=== PATIENT | female | born 1950 | race Caucasian/White ===

== ENCOUNTER → 2016-07-16 | Outpatient (CLI) | payer OTHER, BC ==
[~2016-07-16] MED LIST: ASPI-461 PO; ASPI325T45 PO; ATOR-22 PO; CALC500T64; COEN1CAP17 PO; ENAL10TA88 PO; FLAX1CAP11; FURO20TA PO; LEVO50TA PO; MECL1TAB42 PO; MULT-1027 PO; NAPR1TAB9 PO; OCCUVITE; OMEGCAP2; ONDA4TAB10 SL; REDCAP2; [UNRECOGNIZED DRUG - CODE]
--- NOTE | 2016-07-16 10:58 | DIAGNOSTIC IMAGING REPORT ---
Limited abdominal ultrasound ABDOMEN FOR HERNIA CLINICAL HISTORY: ABDOMINAL PAIN hernia TECHNIQUE: Survey ultrasound COMPARISON STUDY: None FINDINGS: No evidence for hernia bile sent criteria. IMPRESSION: Negative study. No evidence for hernia. Electronically signed by: Vignesh Rajput M.D. 07/16/2016 10:57 AM Dictated Date/Time: 07/16/2016 10:56 AM
== END | disposition home or self-care (01) ==
LOC: C.ULTRBC 09:27
PROVIDERS: ATTEND Physician Assistant Medical
DX: R10.9 Unspecified abdominal pain (principal)

== ENCOUNTER → 2016-09-19 | Outpatient (CLI) | payer OTHER ==
--- NOTE | 2016-09-20 13:59 | MAMMOGRAPHY REPORT ---
BILATERAL DIGITAL SCREENING MAMMOGRAM WITH CAD: 09/19/2016 CLINICAL HISTORY: Routine screening. Patient has no complaints. TECHNIQUE: Current study was also evaluated with a Computer Aided Detection (CAD) system. Bilateral CC and MLO views were obtained. COMPARISON: Comparison is made to exams dated: 08/10/2015 mammogram, 08/08/2014 mammogram, 08/05/2013 m ammogram, 08/04/2012 mammogram, 08/02/2011 mammogram, and 07/31/2010 mammogram - [facility] enter. BREAST COMPOSITION: There are scattered areas of fibroglandular density in both breasts. FINDINGS: No suspicious masses, calcifications, or areas of architectural distortion are noted in ei ther breast. There has been no significant interval change compared to prior exams. Scattered bilater al benign-appearing calcifications are not significantly changed. IMPRESSION: ACR BI-RADS CATEGORY 2: BENIGN There is no mammographic evidence of malignancy. A 1 year screening mammogram is recommended. The pa tient will receive written notification of the results. Approximately 10% of breast cancers are not detected with mammography. A negative mammographic report should not delay biopsy if a clinically suggestive mass is present. Yadira Messina M.D. ah/:09/19/2016 14:47:51 Risk Specialist: Scarlett THOMAS(Audrey)(M), [facility] letter sent: Normal 1/2 BI-RADS Code: ACR BI-RADS Category 2: Benign
== END | disposition home or self-care (01) ==
LOC: C.MAMM 14:18
PROVIDERS: ATTEND Obstetrics & Gynecology
DX: Z12.31 Encounter for screening mammogram for malignant neoplasm of breast (principal)

== ENCOUNTER 2016-10-04 12:28 | Emergency (ER) | payer OTHER, BC ==
[~2016-10-04] VITALS: Ht 162.6 cm; Wt 117.1 kg
[~2016-10-04 12:28] MED LIST changes: -ASPI325T45 PO; -MECL1TAB42 PO; -MULT-1027 PO; -ONDA4TAB10 SL
[2016-10-04 12:38] VITALS: TEMP 36.7; Ht 162.6 cm; Wt 117.1 kg
[2016-10-04] MEDS ORDERED: SODIUM CHLORIDE 0.9% 1000ML 1,000 ML IV SCH (12:53)
[2016-10-04 13:11] VITALS: O2SAT 98
[2016-10-04] MEDS ORDERED: SODIUM CHLORIDE 0.9% 1000ML 1,000 ML IV STA (13:22)
[2016-10-04] MEDS ORDERED: MECLIZINE HCL 25 MG TAB PO STA (13:22)
[2016-10-04] MEDS ORDERED: ONDANSETRON INJ 2 MG/ML 2 ML VIAL IV STA (13:22)
[2016-10-04 13:33] LABS: BASO % 0.6 %; BASO ABS # 0.04 K/uL (0-0.2); COMPLETE YES; EOS % 3.1 %; HEMATOCRIT 39.3 % (37-47); IG% 0.2 %; LYMPH % 30.2 %; LYMPH ABS # 1.98 K/uL (1.2-3.4); MEAN CELL VOLUME 90.3 fL (80-100); MEAN CORPUSCULAR HEMOGLOBIN 30.6 pg (25-34); MEAN CORPUSCULAR HGB CONC 33.8 g/dl (32-36); MEAN PLATELET VOLUME 11.2 fL (7.4-10.4); MONO % 10.5 %; NEUT % 55.4 %; PLATELET COUNT 237 K/uL (130-400); RED BLOOD COUNT 4.35 M/uL (4.2-5.4); WHITE BLOOD COUNT 6.55 K/uL (4.8-10.8)
[2016-10-04 13:41] LABS: PARTIAL THROMBOPLASTIN RATIO 1.1; PROTHROMBIN TIME (PATIENT) 10.2 SECONDS (9.0-12.0)
[2016-10-04 13:47] LABS: BLOOD UREA NITROGEN 19 mg/dl (7-18); BUN/CREATININE RATIO 23.8 (10-20); CALCIUM 9.2 mg/dl (8.5-10.1); CARBON DIOXIDE 27 mmol/L (21-32); CHLORIDE 106 mmol/L (98-107); CREATININE 0.79 mg/dl (0.60-1.20); GLUCOSE 93 mg/dl (70-99); SODIUM 140 mmol/L (136-145)
--- NOTE | 2016-10-04 13:52 | DIAGNOSTIC IMAGING REPORT ---
SINGLE VIEW CHEST CLINICAL HISTORY: Strokelike symptoms. FINDINGS: An AP, portable, upright chest radiograph is compared to study dated 06/01/2015. The examination is degraded by portable technique and patient rotation. The heart is top normal for projection. The pulmonary vasculature is noncongested. Chronic interstitial thickening is similar to previous. An accessory azygous fissure is incidentally noted. The lungs and pleural spaces are clear. No pneumothorax is seen. The skeletal structures are osteopenic. The bony thorax is grossly intact. IMPRESSION: No acute cardiopulmonary abnormality. Electronically signed by: Ronald Angel M.D. 10/04/2016 1:50 PM Dictated Date/Time: 10/04/2016 1:49 PM
[2016-10-04] MEDS ORDERED: ASPI325T45 PO (14:00)
[2016-10-04] MEDS ORDERED: MULT-1027 PO (14:03)
--- NOTE | 2016-10-04 14:12 | EMERGENCY ROOM VISIT NOTE ---
History Report prepared by Gary: Catie Buckner Under the Supervision of: Dr. Judson Weldon M.D. First contact with patient: 12:53 Chief Complaint: DIZZY Stated Complaint: LIGHT HEADED ALL THE TIME Nursing Triage Summary: Lightheaded/dizzy for three days, seen FMD and told to come to the ER. States takes her BP meds at night. 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 She has noticed this issue for the past couple of days but states that it was much worse this morning. Her lightheadedness is worse with movement and changing position. Remaining still helps to alleviate her symptoms after a short time. The patient states that she recently started working out again after a month but she noticed her symptoms before that and states that they have been gradually worsening. She is also experiencing some nausea. She called her PCP today and was told to come to the ED for further evaluation. 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 A total of 10 systems reviewed and were otherwise negative. Past Medical & Surgical Medical Problems: (1) Hyperlipidemia (2) Hypertension Surgical Problems: (1) Hx of oophorectomy Family History No pertinent history stated. Social History Smoking Status: Never Smoker Current/Historical Medications Scheduled Aspirin (Aspirin), 81 MG PO DAILY Aspirin (Aspirin), 650 MG PO DAILY Atorvastatin (Lipitor), 20 MG PO DAILY Calcium W/ Magnesium (Francis-Mag), DAILY Coenzyme Q10 (Ubidecarenone) (Co Q 10), 100 MG PO DAILY Enalapril (Vasotec), 10 MG PO QPM Levothyroxine Sodium (Synthroid), 50 MCG PO DAILY Multiple Vitamin (Multi Vitamin), 1 TAB PO DAILY Ondasetron Odt (Zofran Odt), 4 MG SL Q6H Scheduled PRN Meclizine Hcl (Meclizine Hcl), 1 TAB PO TID PRN for Dizziness or Vertigo Allergies Coded Allergies: No Known Allergies (Unverified , 10/04/16) Physical Exam Vital Signs Date Time Temp Pulse Resp B/P (MAP) Pulse Ox O2 Delivery O2 Flow Rate FiO2 10/04/16 15:28 65 18 140/84 100 10/04/16 13:11 69 20 169/99 98 Room Air 10/04/16 13:11 98 Room Air 10/04/16 12:38 36.7 69 20 183/100 95 Room Air Physical Exam GENERAL: Patient is a healthy-appearing well-nourished 66 year old female. HEAD: Normocephalic atraumatic EYES: Ocular movements intact pupils equal and react to light OROPHARYNX mucous membranes are moist no exudates present no erythema or edema present NECK: Supple no nuchal rigidity CHEST: Good equal expansion LUNGS: Clear and equal to auscultation CARDIAC: Normal S1 and S2 ABDOMEN: Soft nontender no guarding BACK: No CVA tenderness EXTREMITIES: No pain upon palpation normal muscle strength in all groups no clubbing cyanosis or edema NEURO: Patient is following commands and answering questions appropriately. Alert and oriented x3 Cranial Nerves 2-12 grossly intact. Negative Haja-Hallpike. Medical Decision & Procedures ER Provider Diagnostic Interpretation: Radiology results as stated below per my review and radiologist interpretation: CT SCAN OF THE BRAIN WITHOUT IV CONTRAST CLINICAL HISTORY: Dizziness. COMPARISON STUDY: No priors. TECHNIQUE: Unenhanced axial CT scan of the brain is performed from the vertex to the skull base. Automated dose control exposure was utilized. A dose lowering technique was utilized adhering to the principles of ALARA. CT DOSE: 638.56 mGycm FINDINGS: Brain parenchyma: The brain parenchyma is normal in appearance. There is no hemorrhage, mass effect, or evidence of acute territorial ischemia by CT criteria. Hyman-white matter is preserved. No extra-axial fluid collection is seen. Ventricles, sulci, cisterns: Normal in configuration. Intracranial vasculature: The visualized intracranial vasculature at the skull base is normal in appearance. Calvarium: Unremarkable. Sinuses and mastoids: The visualized paranasal sinuses are clear. The mastoid air cells are well pneumatized. Orbits: The bony orbits are grossly intact. IMPRESSION: There is no hemorrhage, mass effect, or evidence of acute territorial ischemia by CT criteria. Electronically signed by: Ronald Angel M.D. 10/04/2016 2:35 PM Dictated Date/Time: 10/04/2016 2:33 PM SINGLE VIEW CHEST CLINICAL HISTORY: Strokelike symptoms. FINDINGS: An AP, portable, upright chest radiograph is compared to study dated 06/01/2015. The examination is degraded by portable technique and patient rotation. The heart is top normal for projection. The pulmonary vasculature is noncongested. Chronic interstitial thickening is similar to previous. An accessory azygous fissure is incidentally noted. The lungs and pleural spaces are clear. No pneumothorax is seen. The skeletal structures are osteopenic. The bony thorax is grossly intact. IMPRESSION: No acute cardiopulmonary abnormality. Electronically signed by: Ronald Angel M.D. 10/04/2016 1:50 PM Dictated Date/Time: 10/04/2016 1:49 PM Laboratory Results 10/04/16 13:10 Red Blood Count 4.35, Mean Corpuscular Volume 90.3, Mean Corpuscular Hemoglobin 30.6, Mean Corpuscular Hemoglobin Concent 33.8, Mean Platelet Volume 11.2, Neutrophils (%) (Auto) 55.4, Lymphocytes (%) (Auto) 30.2, Monocytes (%) (Auto) 10.5, Eosinophils (%) (Auto) 3.1, Basophils (%) (Auto) 0.6, Neutrophils # (Auto ) 3.63, Lymphocytes # (Auto) 1.98, Monocytes # (Auto) 0.69, Eosinophils # (Auto ) 0.20, Basophils # (Auto) 0.04 10/04/16 13:10 Test 10/04/16 13:10 10/04/16 13:13 White Blood Count 6.55 K/uL (4.8-10.8) Red Blood Count 4.35 M/uL (4.2-5.4) Hemoglobin 13.3 g/dL (12.0-16.0) Hematocrit 39.3 % (37-47) Mean Corpuscular Volume 90.3 fL (80-100) Mean Corpuscular Hemoglobin 30.6 pg (25-34) Mean Corpuscular Hemoglobin Concent 33.8 g/dl (32-36) Platelet Count 237 K/uL (130-400) Mean Platelet Volume 11.2 fL (7.4-10.4) Neutrophils (%) (Auto) 55.4 % Lymphocytes (%) (Auto) 30.2 % Monocytes (%) (Auto) 10.5 % Eosinophils (%) (Auto) 3.1 % Basophils (%) (Auto) 0.6 % Neutrophils # (Auto) 3.63 K/uL (1.4-6.5) Lymphocytes # (Auto) 1.98 K/uL (1.2-3.4) Monocytes # (Auto) 0.69 K/uL (0.11-0.59) Eosinophils # (Auto) 0.20 K/uL (0-0.5) Basophils # (Auto) 0.04 K/uL (0-0.2) RDW Standard Deviation 46.4 fL (36.4-46.3) RDW Coefficient of Variation 13.8 % (11.5-14.5) Immature Granulocyte % (Auto) 0.2 % Immature Granulocyte # (Auto) 0.01 K/uL (0.00-0.02) Prothrombin Time 10.2 SECONDS (9.0-12.0) Prothromb Time International Ratio 1.0 (0.9-1.1) Activated Partial Thromboplast Time 27.3 SECONDS (21.0-31.0) Partial Thromboplastin Ratio 1.1 Anion Gap 7.0 mmol/L (3-11) Est Creatinine Clear Calc Drug Dose 88.1 ml/min Estimated GFR () 90.4 Estimated GFR (Non- 78.0 BUN/Creatinine Ratio 23.8 (10-20) Calcium Level 9.2 mg/dl (8.5-10.1) Total Creatine Kinase U/L (26-192) Creatine Kinase MB 1.9 ng/ml (0.5-3.6) Creatine Kinase MB Ratio (0-3.0) Troponin I < 0.015 ng/ml (0-0.045) Bedside Glucose 95 mg/dl (70-90) Labs reviewed by ED physician. Medications Administered Medications (Trade) Dose Ordered Sig/Katherine Route Start Time Stop Time Status Last Admin Dose Admin Sodium Chloride 1,000 ml @ 999 mls/hr Q1H1M STAT IV 10/04/16 13:22 10/04/16 14:22 DC 10/04/16 13:22 999 MLS/HR Meclizine HCl (Antivert Tab) 25 mg NOW STAT PO 10/04/16 13:22 10/04/16 13:23 DC 10/04/16 13:37 25 MG Ondansetron HCl (Zofran Inj) 4 mg NOW STAT IV 10/04/16 13:22 10/04/16 13:23 DC 10/04/16 13:37 4 MG ECG Indication: other (dizzy) Rate (beats per minute): 65 Rhythm: normal sinus Findings: T-wave inversion (Lateral and inferior), no acute ischemic change, no ectopy Comparison ECG Date: 01/03/2017 Change: no significant change ED Course 1253: Past medical records reviewed. The patient was evaluated in room B9. A complete history and physical examination was performed. 1253: NSS 1000 ml @ 50 mls/hr IV 1322: Zofran 4 mg IV, Meclizine HCl 25 mg PO, NSS 1000 ml @ 999 mls/hr IV 1410: I reevaluated the patient and she is doing well. 1453: I reassessed the patient at this time. She is feeling better and resting comfortably. I discussed the results and treatment plan with the patient. I answered all pertaining questions that she had. She expressed understanding and verbalized agreement. The patient will be discharged home. Medical Decision Differential diagnosis: Etiologies such as benign positional vertigo, dehydration, hypovolemia, anemia, tumor, infection, hypoglycemia, electrolyte abnormalities, cardiac sources, intracerebral event, toxicologic, neurologic, as well as others were entertained. This is a 66-year-old female who presents emergency department complaining of dizziness. The dizziness is exacerbated by movement and is especially worse with the patient either sits up or stands up however the dizziness quickly normalizes. Based on this finding I do believe that the patient is suffering from benign positional vertigo. She was started on meclizine with much improvement in her symptoms. The patient is hypertensive here however that began to normalize with control of her symptoms. I do believe that she is well enough to be discharged home for follow-up with ear nose and throat. Patient was in agreement with the treatment plan. Medication Reconcilliation Current Medication List: was personally reviewed by me Blood Pressure Screening Patient's blood pressure: Elevated blood pressure Blood pressure disposition: Referred to PCP Impression Primary Impression: Benign positional vertigo Additional Impression: Hypertension Scribe Attestation The scribe's documentation has been prepared under my direction and personally reviewed by me in its entirety. I confirm that the note above accurately reflects all work, treatment, procedures, and medical decision making performed by me. Departure Information Dispostion Home / Self-Care Prescriptions Ondasetron Odt (ZOFRAN ODT) 4 Mg Tab 4 MG SL Q6H for Nausea, #6 TAB Prov: Judson Weldon MD 10/04/16 Meclizine Hcl (MECLIZINE HCL) 25 Mg Tab 1 TAB PO TID Y for Dizziness or Vertigo for 10 Days, #30 TAB Prov: Judson Weldon MD 10/04/16 Referrals Yung Cui M.D. (PCP) Colton Cummings D.O. Forms HOME CARE DOCUMENTATION FORM, IMPORTANT VISIT INFORMATION Patient Instructions ED BPV Vertigo, Hypertension Dc, My [facility] Additional Instructions Follow up with Dr Cummings's office for continued dizziness Practice christiano maneuver at home You were found to have an elevated blood pressure today (>120 sytolic or >90 diastolic). Per medicare guidelines, you need to follow up with this blood pressure screening with your Primary Care Physician (PCP). For a new PCP call [phone]. You have been examined and treated today on an emergency basis only. This is not a substitute for, or an effort to provide, complete comprehensive medical care. It is impossible to recognize and treat all injuries or illnesses in a single emergency department visit. It is therefore important that you follow up closely with Dr Cui. Call as soon as possible for an appointment. Thank you for your time and consideration. I look forward to speaking with you again soon. Please don't hesitate to call us if you have any questions. Problem Qualifiers Primary Impression: Benign positional vertigo Laterality: unspecified laterality Qualified Codes: H81.10 - Benign paroxysmal vertigo, unspecified ear Additional Impression: Hypertension Hypertension type: unspecified Qualified Codes: I10 - Essential (primary) hypertension
--- NOTE | 2016-10-04 14:37 | DIAGNOSTIC IMAGING REPORT ---
CT SCAN OF THE BRAIN WITHOUT IV CONTRAST CLINICAL HISTORY: Dizziness. COMPARISON STUDY: No priors. TECHNIQUE: Unenhanced axial CT scan of the brain is performed from the vertex to the skull base. Automated dose control exposure was utilized. A dose lowering technique was utilized adhering to the principles of ALARA. CT DOSE: 638.56 mGycm FINDINGS: Brain parenchyma: The brain parenchyma is normal in appearance. There is no hemorrhage, mass effect, or evidence of acute territorial ischemia by CT criteria. Hyman-white matter is preserved. No extra-axial fluid collection is seen. Ventricles, sulci, cisterns: Normal in configuration. Intracranial vasculature: The visualized intracranial vasculature at the skull base is normal in appearance. Calvarium: Unremarkable. Sinuses and mastoids: The visualized paranasal sinuses are clear. The mastoid air cells are well pneumatized. Orbits: The bony orbits are grossly intact. IMPRESSION: There is no hemorrhage, mass effect, or evidence of acute territorial ischemia by CT criteria. Electronically signed by: Ronald Angel M.D. 10/04/2016 2:35 PM Dictated Date/Time: 10/04/2016 2:33 PM
[2016-10-04] MEDS ORDERED: MECL1TAB42 PO (15:10)
[2016-10-04] MEDS ORDERED: ONDA4TAB10 SL (15:10)
[2016-10-04 15:28] VITALS: BP 140/84; PULSE 65; O2SAT 100
== END 2016-10-04 15:29 | disposition home or self-care (01) ==
LOC: C.EDB 12:30
DX: H81.10 Benign paroxysmal vertigo, unspecified ear (principal); I10 Essential (primary) hypertension; E78.5 Hyperlipidemia, unspecified; Z79.82 Long term (current) use of aspirin; Z79.899 Other long term (current) drug therapy

== ENCOUNTER → 2016-10-08 | Outpatient (CLI) | payer OTHER, BC ==
[~2016-10-08] MED LIST changes: +ASPI325T45 PO; -FLAX1CAP11; -FURO20TA PO; +MECL1TAB42 PO; +MULT-1027 PO; -NAPR1TAB9 PO; -OCCUVITE; -OMEGCAP2; +ONDA4TAB10 SL; -REDCAP2; -[UNRECOGNIZED DRUG - CODE]
--- NOTE | 2016-10-22 13:46 | CODING QUERY MEDICAL NECESSITY ---
SUPPORTING DIAGNOSIS NEEDED Dr. Frederick, A supporting diagnosis is required for the test/procedure performed on this patient in order for us to be reimbursed by the patient's insurance. Please provide a supporting diagnosis for the following test/procedure listed below next to the test name along with your signature. *If there is no additional diagnosis for this patient that would support the following test/procedure please document that below next to the test/procedure. Test(s)/Procedure(s) that require a supporting diagnosis: * ([id number]) DXA BONE DENSITY, AXIAL DIAGNOSIS: DATE OF SERVICE: 10/08/16 Provider Signature: Date: Thank you Elias Lanier [facility] Information Management Once completed, please kindly fax back to [phone] For questions please call [phone]
== END | disposition home or self-care (01) ==
LOC: C.MAMM 08:02
PROVIDERS: ATTEND Obstetrics & Gynecology
DX: Z12.4 Encounter for screening for malignant neoplasm of cervix (principal); Z13.820 Encounter for screening for osteoporosis

== ENCOUNTER → 2017-03-27 | Outpatient (CLI) | payer OTHER, BC ==
[~2017-03-27] MED LIST changes: -MECL1TAB42 PO
[2017-03-27 13:51] LABS: BASO % 0.5 %; BASO ABS # 0.03 K/uL (0-0.2); EOS % 2.4 %; EOS ABS # 0.13 K/uL (0-0.5); HEMATOCRIT 39.5 % (37-47); HEMOGLOBIN 13.3 g/dL (12.0-16.0); LYMPH % 31.6 %; LYMPH ABS # 1.75 K/uL (1.2-3.4); MEAN CELL VOLUME 91.4 fL (80-100); MEAN CORPUSCULAR HEMOGLOBIN 30.8 pg (25-34); MEAN CORPUSCULAR HGB CONC 33.7 g/dl (32-36); MEAN PLATELET VOLUME 12.2 fL (7.4-10.4); MONO % 8.3 %; MONO ABS # 0.46 K/uL (0.11-0.59); NEUT % 57.2 %; NEUT ABS # 3.16 K/uL (1.4-6.5); PLATELET COUNT 236 K/uL (130-400); RED CELL DISTRIBUTION WIDTH CV 14.2 % (11.5-14.5); RED CELL DISTRIBUTION WIDTH SD 47.9 fL (36.4-46.3); WHITE BLOOD COUNT 5.53 K/uL (4.8-10.8)
[2017-03-27 14:22] LABS: ALBUMIN 3.5 gm/dl (3.4-5.0); ALT/SGPT 31 U/L (12-78); AST/SGOT 20 U/L (15-37); BLOOD UREA NITROGEN 21 mg/dl (7-18); CALCIUM 8.9 mg/dl (8.5-10.1); CARBON DIOXIDE 24 mmol/L (21-32); CHOLESTEROL 147 mg/dl (0-200); CREATININE 0.76 mg/dl (0.60-1.20); GLUCOSE 100 mg/dl (70-99); POTASSIUM 4.3 mmol/L (3.5-5.1); SODIUM 138 mmol/L (136-145)
[2017-03-27 14:33] LABS: ALKALINE PHOSPHATASE 86 U/L (45-117); LDL CHOLESTEROL CALCULATED 79 mg/dl; TOTAL PROTEIN 7.1 gm/dl (6.4-8.2)
== END | disposition home or self-care (01) ==
LOC: C.LABBC 09:41
PROVIDERS: ATTEND Physician Assistant Medical
DX: I10 Essential (primary) hypertension (principal); E78.5 Hyperlipidemia, unspecified; K21.9 Gastro-esophageal reflux disease without esophagitis; E03.9 Hypothyroidism, unspecified; Z11.59 Encounter for screening for other viral diseases

== ENCOUNTER → 2017-07-02 | Outpatient (CLI) | payer OTHER, BC ==
[~2017-07-02] MED LIST changes: +ASPECOTC PO; -ASPI325T45 PO; -ONDA4TAB10 SL
--- NOTE | 2017-07-02 07:59 | DIAGNOSTIC IMAGING REPORT ---
MRI OF THE RIGHT KNEE WITHOUT CONTRAST CLINICAL HISTORY: Right knee pain. Evaluate for meniscal tear. COMPARISON STUDY: None. TECHNIQUE: Utilizing a 1.5 Christin magnet and dedicated coil, multiplanar, multiecho imaging of the right knee was performed without intravenous or intraarticular contrast. FINDINGS: Alignment of the right knee is anatomic. Extensor mechanism is intact. There is a moderate size right knee joint effusion with a small popliteal cyst. Note is made of a small 4 mm joint body located posterior to the posterior cruciate ligament. No lateral meniscal tear is present. Note is made of an oblique tear of the body and posterior horn of the medial meniscus which extends to the tibial articular surface. The cruciate and collateral ligaments are intact. There is no marrow replacement or marrow edema. Note is made of severe chondrosis within the medial patellofemoral compartment. There is also moderate chondrosis within the medial compartment. There is minimal chondrosis within the lateral compartment. Mild osteophytosis is noted. IMPRESSION: 1. Oblique tear of the body and posterior horn of the medial meniscus. 2. 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 3. Intact cruciate and collateral ligaments. 4. Moderate size joint effusion with a 4 mm joint body located posterior to the posterior cruciate ligament. 5. Small popliteal cyst. Electronically signed by: Mariano England M.D. 07/02/2017 7:58 AM Dictated Date/Time: 07/02/2017 7:51 AM
== END | disposition home or self-care (01) ==
LOC: C.MRIBC 06:58
PROVIDERS: ATTEND Orthopaedic Surgery
DX: S83.241A Other tear of medial meniscus, current injury, right knee, initial encounter (principal); M25.461 Effusion, right knee; M22.8X1 Other disorders of patella, right knee; X58.XXXA Exposure to other specified factors, initial encounter

== ENCOUNTER → 2017-09-02 | Outpatient (CLI) | payer OTHER, BC ==
[~2017-09-02] MED LIST changes: +ACET-1693 PO; +KETO10TA PO; +MELA1TAB3 PO; +OXYC-57 PO
[2017-09-02 09:30] LABS: BASO % 0.8 %; BASO ABS # 0.04 K/uL (0-0.2); EOS % 3.4 %; EOS ABS # 0.18 K/uL (0-0.5); HEMATOCRIT 39.5 % (37-47); HEMOGLOBIN 13.4 g/dL (12.0-16.0); IG# 0.01 K/uL (0.00-0.02); LYMPH % 43.8 %; LYMPH ABS # 2.31 K/uL (1.2-3.4); MEAN CELL VOLUME 91.9 fL (80-100); MEAN CORPUSCULAR HEMOGLOBIN 31.2 pg (25-34); MEAN CORPUSCULAR HGB CONC 33.9 g/dl (32-36); MEAN PLATELET VOLUME 12.4 fL (7.4-10.4); MONO ABS # 0.58 K/uL (0.11-0.59); NEUT % 40.8 %; NEUT ABS # 2.15 K/uL (1.4-6.5); PLATELET COUNT 220 K/uL (130-400); RED CELL DISTRIBUTION WIDTH CV 13.4 % (11.5-14.5); RED CELL DISTRIBUTION WIDTH SD 44.7 fL (36.4-46.3); WHITE BLOOD COUNT 5.27 K/uL (4.8-10.8)
[2017-09-02 09:45] LABS: BLOOD UREA NITROGEN 17 mg/dl (7-18); CALCIUM 8.6 mg/dl (8.5-10.1); CARBON DIOXIDE 25 mmol/L (21-32); CREATININE 0.76 mg/dl (0.60-1.20); GLUCOSE 98 mg/dl (70-99); POTASSIUM 4.1 mmol/L (3.5-5.1); SODIUM 140 mmol/L (136-145)
== END | disposition home or self-care (01) ==
LOC: C.CPL 07:55
PROVIDERS: ATTEND Orthopaedic Surgery Sports Medicine
DX: Z01.818 Encounter for other preprocedural examination (principal); S83.241A Other tear of medial meniscus, current injury, right knee, initial encounter; X58.XXXA Exposure to other specified factors, initial encounter

== ENCOUNTER → 2017-09-10 | Day surgery (SDC) | payer OTHER, BC ==
[2017-09-04 16:11] VITALS: Ht 162.6 cm; Wt 99.1 kg
[~2017-09-10] VITALS: Ht 162.6 cm; Wt 99.1 kg
[~2017-09-10] MED LIST changes: -ASPECOTC PO; +ATROPINE SULFATE 0.1 MG/ML 5ML SYR IV PRN; +CEFAZOLIN 2000MG IV PUSH 15 ML IV SCH; +DEXAMETHASONE SOD INJ 4 MG/ML VIAL ONE; +EpHEDrine SULFATE INJ 50 MG/ML AMP IV PRN; +EpINEphrine INJ 1MG/ML AMP 1 MG/ML AMP ONE; +FENTANYL CITRATE INJ 50 MCG/1 ML 2 ML VIAL IV PRN; +FENTANYL CITRATE INJ 50 MCG/1 ML 2 ML VIAL ONE; +KETOROLAC TROMETHAMINE 30 MG/ML VIAL ONE; +LIDOCAINE HCL 2% 2 ML VIAL (20MG/ML) ONE; +MIDAZOLAM HCL 1 MG/ML 2ML VIAL ONE; +ONDANSETRON INJ 2 MG/ML 2 ML VIAL IV PRN; +ONDANSETRON INJ 2 MG/ML 2 ML VIAL ONE; +OXYCODONE/ACETAMINOPHEN 5-325 TAB PO PRN; +PROPOFOL IV EMULSION 10 MG/ML 20 ML VIAL ONE; +ROPIVACAINE 0.5% 5 MG/ML 30 ML VIAL ONE; +SODIUM CHLORIDE 0.9% 1000ML 1,000 ML IV SCH
[2017-09-10] MEDS: LACTATED RINGER'S 1000ML 1,000 ML IV SCH ×2 (10:00→10:04)
--- NOTE | 2017-09-10 10:06 | History & Physical Bridge - SC ---
H&P Re-Evaluation Bridge Note: I have examined the patient, reviewed the History & Physical and in the interval since the performance of the History & Physical I have noted the following changes of clinical significance: No changes noted
--- NOTE | 2017-09-10 11:48 | [facility] Post Operative Brief Note ---
Immediate Operative Summary Operative Date Sep 10, 2017. Pre-Operative Diagnosis Right Knee Medial Meniscus Tear, DJD Post-Operative Diagnosis Same Procedure(s) Performed Right Knee Arthroscopy, Partial Medial Meniscectomy + Chondroplasty Surgeon Dr. Vicente Construction Person Surgeon(s) Madelyn Ghotra PA-C Estimated Blood Loss Minimal Findings Consistent with Post-Op Diagnosis Specimens None Anesthesia Type General Complication(s) none Disposition Accompanied Pt To Recovery: no Disposition: Recovery Room / PACU
--- NOTE | 2017-09-10 11:57 | Discharge Instructions-SurgCtr ---
Discharge Instructions Date of Service Sep 10, 2017. Visit Reason for Visit: Right Knee Medial Meniscus Tear, Djd Discharge Discharge Diagnosis / Problem: SAME ABOVE Discharge Goals Goal(s): Decrease discomfort, Improve function Medications Stopped Medications Name(s): aspirin Activity Recommendations Activity Limitations: as noted below Lifting Limitations: until after follow-up appointment Shower/Bathe: tomorrow Weightbearing Status: Right weightbearing (as tolerated) Anesthesia . Post Anesthesia Instructions: If you have had General Anesthesia or IV Sedation: * Do not drive today. * Resume driving when surgeon permits. * Do not make important decisions or sign legal documents today. * Call surgeon for: 1. Temperature elevations greater than 101 degrees F. 2. Uncontrollable pain. 3. Excessive bleeding. 4. Persistent nausea and vomiting. 5. Medication intolerance (nausea, vomiting or rash). * For nausea and vomiting use only clear liquids such as: tea, soda, bouillon until nausea subsides, then gradually increase diet as tolerated. * If you have any concerns or questions, call your surgeon's office. If physician is unavailable and it is an emergency, call 911 or go to the nearest emergency room. . Instructions / Follow-Up Instructions / Follow-Up MEDICATIONS: * Resume previous medications unless instructed otherwise by your surgeon. * Always take pain medication on a full stomach or with food to avoid upset stomach. * Do not drink alcohol or drive while taking narcotics. * Ibuprofen or Tylenol may be taken if narcotic not needed. SPECIAL CARE INSTRUCTIONS: __ None _X_ Keep extremity elevated and iced x 48 hours; apply ice 20-30 minutes 8-10 times/day. May remove at night. __ Crutches __ May discard when able __ Brace/Post-op shoe __ 24 hrs/day __ Remove at night _X_ Dressing __ Maintain until seen in office, may shower with plastic over site _X_ Remove dressings in 24-48 hours and then may shower _X_ Cover incisions with band-aids after showering __ Do not remove steri-strips RESTART 81 MG ASPIRIN TWICE DAILY FOR THE NEXT 4 WEEKS Call physician if chills or temperature rises above 102 degrees or pain unrelieved by prescribed pain medications. Office [phone] Diet Recommendations Home Diet: resume previous diet Procedures Procedures Performed: Right Knee Arthroscopy, Partial Medial Meniscectomy + Chondroplasty Pending Studies Studies pending at discharge: no Medical Emergencies . Who to Call and When: Medical Emergencies: If at any time you feel your situation is an emergency, please call 911 immediately. . Non-Emergent Contact Non-Emergency issues call your: Primary Care Provider . . "Provider Documentation" section prepared by Ck Ghotra. .
--- NOTE | 2017-09-10 12:26 | OPERATIVE REPORT ---
DATE OF OPERATION: 09/10/2017 SURGEON: Franklin Vicente MD [employer] REPAIRER: Ck Ghotra PA-C. PREOPERATIVE DIAGNOSES: 1. Right knee degenerative medial meniscus tear. 2. Right knee degenerative joint disease. POSTOPERATIVE DIAGNOSES: 1. Right knee degenerative medial meniscus tear. 2. Right knee degenerative joint disease with some grade 3 chondrosis of the patella and trochlea as well as grade 3 chondrosis of the medial femoral condyle, medial tibial plateau and some focal area of grade 4 change of the medial tibial plateau and some grade 2 changes of the lateral compartment. She did have a significant degenerative medial meniscus tear. PROCEDURES PERFORMED: 1. Right knee exam under anesthesia. 2. Right knee diagnostic arthroscopy. 3. Right knee partial meniscectomy. 4. Right knee chondroplasty of the medial femoral condyle and patellofemoral joint. COMPLICATIONS: None. ESTIMATED BLOOD LOSS: Minimal. TOURNIQUET TIME: 21 minutes at 300 mmHg. ANESTHESIA: General. SPECIMENS: None. OPERATIVE INDICATIONS: The patient is a 66-year-old white female with intermittent on and off knee pain in her right knee over several year period of time. Several months ago, she developed markedly increasing medial sided knee pain. She had been through extensive conservative treatment with minimal relief. X-rays revealed fairly mild DJD. She did have a degenerative medial meniscus tear on MRI and she would like to proceed with a partial meniscectomy and chondroplasty. OPERATIVE FINDINGS: Examination under anesthesia revealed a small knee effusion. Her range of motion was full extension to 135 degrees of flexion. There is no clinical instability. Barbie's is negative for mechanical symptoms. ARTHROSCOPIC FINDINGS: Arthroscopic findings revealed a small knee effusion. She had some fairly diffuse grade 3 changes of the patella and trochlea. In the intercondylar notch, the ACL and PCL were intact. In the medial compartment, there was a very complex degenerative tear of the posterior horn of the medial meniscus with a flap flipped anteriorly. She did have some grade 3 change of the medial femoral condyle and medial tibial plateau with 1 focal area of grade 4 change of the medial tibial plateau. In the lateral compartment, she has some fraying of the inner rim over the lateral meniscus. She has some grade 2 changes of the tibial plateau. OPERATIVE PROCEDURE: The patient was taken to the operating room, identified and placed on the operative table in supine position. All contact areas were appropriately padded. IV antibiotics were provided by anesthesia team. General anesthetic was implemented by anesthesia team. Right thigh tourniquet was then placed and the right knee was then examined under anesthesia with findings as described above. The right leg was then prepped and draped in usual sterile fashion. The right leg was elevated and exsanguinated with Esmarch and tourniquet was placed at 300 mmHg. Routine right knee arthroscopy was then performed through typical anteromedial and anterolateral portals. A supralateral outflow portal was established for outflow. Attention was first drawn to the medial meniscus. With the use of motorized and hand-controlled instruments, a partial medial meniscectomy was then performed. We resected the degenerative tear as well. All unstable components back to stable tissue. Once this was complete, the shaver was then used to debride the loose cartilage at the end of the medial femoral condyle as well as the medial tibial plateau. I then examined the lateral compartment, there was a little fraying of the inner rim of the lateral meniscus which we cleaned up, but it was fairly minimal. Attention was then drawn to the patellofemoral compartment. With the use of the shaver, I did debride the loose cartilage on the undersurface of patella as well as the trochlea. Once this was complete, the arthroscopic instruments were then removed from the joint. The portals were closed with 3-0 Prolene suture in simple fashion. The knee was injected with 30 mL of 0.5% ropivacaine with epinephrine and 30 mg of Toradol. A sterile dressing of Xeroform, 4 x 4's, sterile cast padding and Tyrone bandage were applied. The tourniquet was then let down for a tourniquet time of 21 minutes. The patient then brought out of general anesthesia and transferred to the recovery room in stable condition. The patient tolerated the procedure well with no complication. All needle and sponge counts were correct at the end of the operation. I attest to the content of the Intraoperative Record and any orders documented therein. Any exceptions are noted below. CRISTELA
[2017-09-10 12:35] VITALS: TEMP 36.2
--- NOTE | 2017-09-10 12:37 | Anesthesia Progress Nt - [facility] ---
Anesthesia Post Op Note Date & Time Sep 10, 2017 at 12:37 Vital Signs Pain Intensity: 0 Vital Signs Past 12 Hours Date Time Temp Pulse Resp B/P (MAP) Pulse Ox O2 Delivery O2 Flow Rate FiO2 09/10/17 12:35 36.2 56 16 138/82 (100) 95 Room Air 09/10/17 12:22 57 11 97 09/10/17 12:22 57 11 09/10/17 12:21 127/71 09/10/17 12:17 58 12 09/10/17 12:17 58 12 97 09/10/17 12:16 153/71 09/10/17 12:13 36.3 98 Room Air 09/10/17 12:12 60 19 97 09/10/17 12:12 61 19 09/10/17 12:11 148/76 09/10/17 12:08 58 14 09/10/17 12:08 58 14 98 09/10/17 12:06 155/73 09/10/17 12:03 55 18 09/10/17 12:03 56 18 100 09/10/17 12:02 60 20 09/10/17 12:02 61 20 100 09/10/17 12:01 136/70 09/10/17 11:57 59 17 100 09/10/17 11:57 58 17 09/10/17 11:56 151/69 09/10/17 11:56 151/69 09/10/17 11:53 62 24 09/10/17 11:53 63 24 100 09/10/17 11:53 62 24 09/10/17 11:53 63 24 100 09/10/17 11:51 142/70 09/10/17 11:51 142/70 09/10/17 11:49 148/69 09/10/17 11:49 148/69 09/10/17 11:48 36.3 66 16 148/69 100 Mask 9 09/10/17 09:38 36.5 64 22 168/99 (122) 95 Room Air Notes Mental Status: alert / awake / arousable, participated in evaluation Pt Amnestic to Procedure: Yes Nausea / Vomiting: adequately controlled Pain: adequately controlled Airway Patency, RR, SpO2: stable & adequate BP & HR: stable & adequate Hydration State: stable & adequate Anesthetic Complications: no major complications apparent
[2017-09-10 13:03] VITALS: BP 151/77; PULSE 58; O2SAT 96
== END | disposition home or self-care (01) ==
LOC: X.SURG 09:19
PROVIDERS: ATTEND Orthopaedic Surgery Sports Medicine
DX: S83.241A Other tear of medial meniscus, current injury, right knee, initial encounter (principal); M17.11 Unilateral primary osteoarthritis, right knee; I10 Essential (primary) hypertension; E78.00 Pure hypercholesterolemia, unspecified; E03.9 Hypothyroidism, unspecified; K21.9 Gastro-esophageal reflux disease without esophagitis; M19.90 Unspecified osteoarthritis, unspecified site; E66.9 Obesity, unspecified; Z87.891 Personal history of nicotine dependence; X58.XXXA Exposure to other specified factors, initial encounter

== ENCOUNTER → 2017-09-22 | Outpatient (CLI) | payer OTHER ==
[~2017-09-22] MED LIST changes: -ATROPINE SULFATE 0.1 MG/ML 5ML SYR IV PRN; -CEFAZOLIN 2000MG IV PUSH 15 ML IV SCH; -DEXAMETHASONE SOD INJ 4 MG/ML VIAL ONE; -EpHEDrine SULFATE INJ 50 MG/ML AMP IV PRN; -EpINEphrine INJ 1MG/ML AMP 1 MG/ML AMP ONE; -FENTANYL CITRATE INJ 50 MCG/1 ML 2 ML VIAL IV PRN; -FENTANYL CITRATE INJ 50 MCG/1 ML 2 ML VIAL ONE; -KETOROLAC TROMETHAMINE 30 MG/ML VIAL ONE; -LIDOCAINE HCL 2% 2 ML VIAL (20MG/ML) ONE; -MIDAZOLAM HCL 1 MG/ML 2ML VIAL ONE; -ONDANSETRON INJ 2 MG/ML 2 ML VIAL IV PRN; -ONDANSETRON INJ 2 MG/ML 2 ML VIAL ONE; -OXYCODONE/ACETAMINOPHEN 5-325 TAB PO PRN; -PROPOFOL IV EMULSION 10 MG/ML 20 ML VIAL ONE; -ROPIVACAINE 0.5% 5 MG/ML 30 ML VIAL ONE; -SODIUM CHLORIDE 0.9% 1000ML 1,000 ML IV SCH
--- NOTE | 2017-09-23 14:59 | MAMMOGRAPHY REPORT ---
BILATERAL DIGITAL SCREENING MAMMOGRAM TOMOSYNTHESIS WITH CAD: 09/22/2017 CLINICAL HISTORY: Routine screening. Patient has no complaints. TECHNIQUE: The study was acquired using full field digital technology and interpreted from soft copy. Breast tomosynthesis in addition to standard 2D mammography was performed. Current study was also ev aluated with a Computer Aided Detection (CAD) system. COMPARISON: Comparison is made to exams dated: 09/19/2016 mammogram, 08/10/2015 mammogram, 08/08/2014 m ammogram, 07/28/2009 mammogram, 07/31/2010 mammogram, and 08/04/2012 mammogram - [facility] enter. BREAST COMPOSITION: There are scattered areas of fibroglandular density in both breasts. FINDINGS: There are scattered stable benign-appearing calcifications in the breasts. No suspicious ma ss, developing asymmetry, architectural distortion or cluster of suspicious microcalcifications is se en. IMPRESSION: ACR BI-RADS CATEGORY 1: NEGATIVE There is no mammographic evidence of malignancy. A 1 year screening mammogram is recommended.( 019) The patient will receive written notification of the results. Some breast cancers are not detected with mammography. A negative mammographic report should not román y biopsy if a clinically suggestive mass is present. Sharona Granados M.D. ay/:09/23/2017 09:45:51 Headwaitress: RT Danis(R)(M), [facility] letter sent: Normal 1/2 BI-RADS Code: ACR BI-RADS Category 1: Negative
== END | disposition home or self-care (01) ==
LOC: C.MAMM 10:11
PROVIDERS: ATTEND Obstetrics & Gynecology
DX: Z12.31 Encounter for screening mammogram for malignant neoplasm of breast (principal)

== ENCOUNTER 2023-08-19 08:21 | Observation (INO) ==
--- NOTE | 2023-07-10 09:47 | PAT Medication Instructions ---
Medication Instructions Date of Service July 10, 2023 Home Medications Medication Instructions Recorded cholecalciferol (vitamin D3) 25 50 mcg (2 x 25 mcg (1,000 unit)) 08/04/20 mcg (1,000 unit) capsule PO DAILY #30 caps valacyclovir 1 gram tablet 2,000 mg (2 x 1 gram) PO BID PRN 10/24/22 when lesions appear #16 tabs metformin 500 mg tablet,extended 500 mg PO BID #180 tabs 06/02/ release 24 hr Medication List: acetaminophen 650 mg tablet,extended release 650 mg PO Q6H PRN Pain qcnhern-dnwvryhih-wtkf 333 mg-133 mg-5 mg tablet 1 tab PO DAILY coenzyme Q10 100 mg capsule 100 mg PO DAILY multivitamin with minerals-folic acid 200 mcg chewable tablet (Adult Multivitamin Gummies) 200 mcg PO DAILY cholecalciferol (vitamin D3) 25 mcg (1,000 unit) capsule 50 mcg (2 x 25 mcg (1,000 unit)) PO DAILY cyanocobalamin (vitamin B-12) 1,000 mcg capsule 1,000 mcg PO DAILY PRN energy ibuprofen 200 mg tablet 200 mg PO Q6H PRN Pain valacyclovir 1 gram tablet 2,000 mg (2 x 1 gram) PO BID PRN when lesions appear metformin 500 mg tablet,extended release 24 hr 500 mg PO BID atorvastatin 20 mg tablet 20 mg PO QPM enalapril maleate 10 mg tablet 10 mg PO QPM levothyroxine 50 mcg tablet 50 mcg PO QPM MEDICATION INSTRUCTIONS: ASK your surgeon for instructions ibuprofen 200 mg tablet 200 mg PO Q6H PRN Pain STOP taking 2 weeks before surgery coenzyme Q10 100 mg capsule 100 mg PO DAILY DO NOT take the morning of surgery multivitamin with minerals-folic acid 200 mcg chewable tablet (Adult Multivitamin Gummies) 200 mcg PO DAILY wiyfgvr-wptxamvsh-hgxk 333 mg-133 mg-5 mg tablet 1 tab PO DAILY cholecalciferol (vitamin D3) 25 mcg (1,000 unit) capsule 50 mcg (2 x 25 mcg (1,000 unit)) PO DAILY cyanocobalamin (vitamin B-12) 1,000 mcg capsule 1,000 mcg PO DAILY PRN energy metformin 500 mg tablet,extended release 24 hr 500 mg PO BID Take morning of surgery With a small sip of water, OTHERWISE NOTHING TO EAT OR DRINK AFTER MIDNIGHT: acetaminophen 650 mg tablet,extended release 650 mg PO Q6H PRN Pain valacyclovir 1 gram tablet 2,000 mg (2 x 1 gram) PO BID PRN when lesions appear Take evening before surgery acetaminophen 650 mg tablet,extended release 650 mg PO Q6H PRN Pain atorvastatin 20 mg tablet 20 mg PO QPM enalapril maleate 10 mg tablet 10 mg PO QPM levothyroxine 50 mcg tablet 50 mcg PO QPM metformin 500 mg tablet,extended release 24 hr 500 mg PO BID valacyclovir 1 gram tablet 2,000 mg (2 x 1 gram) PO BID PRN when lesions appear Other Notes If you have any questions please call us at [phone] or [phone] or [phone] or [phone]
--- NOTE | 2023-07-14 11:00 | Anesthesiology Consultation ---
Date of Service July 14, 2023 Assessment & Plan (1) Encounter for pre-operative examination: - Check BSG AM DOS - Infectious disease screening: Per assessment on 07/14/23: No known infectious disease contacts or current infectious disease symptoms (previous ~07/03/23 URI symptoms resolved). Patient currently at baseline as of PAT visit 07/14/23. - Outpatient joint assessment: Pt currently scheduled for inpatient pathway. If surgeon requests review for outpatient joint pathway, patient is not recommended candidate for outpatient joint program from anesthesia standpoint based on available information. - Patient acceptable risk for surgery pending upcoming PCP office visit note ([facility], appt 07/15). Chart Review Chart Review: Patient seen in Pre Admission Testing Teaching & Discussion Pre-Anesthesia Teaching/Discussion Notes: Instructed NPO after midnight before surgery,except medications with 15 cc of water. Medication instructions provided according to the [facility] guidelines. History Surgery Operation Date: 08/20/23 07:00 Proposed Procedures p Right Total Knee Arthroplasty - Franklin Vicente MD Height/Weight Height: 5 ft 4 in Weight: 105.8 kg Allergies Allergy/AdvReac Type Severity Reaction Status Date / Time No Known Drug Allergies Allergy Verified 07/16/23 10:49 Seasonal AdvReac Unknown Uncoded 07/16/23 10:49 Medications Home Medications Medication Instructions Recorded Confirmed Last Taken acetaminophen 650 mg 650 mg PO Q6H PRN Pain 08/07/18 07/16/23 Unknown tablet,extended release otegdze-yzivqbats-phzf 333 mg-133 1 tab PO DAILY 08/07/18 07/16/23 Unknown mg-5 mg tablet coenzyme Q10 100 mg capsule 100 mg PO DAILY 08/07/18 07/16/23 Unknown multivitamin with minerals-folic 200 mcg PO DAILY 08/07/18 07/16/23 Unknown acid 200 mcg chewable tablet (Adult Multivitamin Gummies) cholecalciferol (vitamin D3) 25 50 mcg (2 x 25 mcg (1,000 unit)) 08/05/19 07/16/23 Unknown mcg (1,000 unit) capsule PO DAILY #30 caps cyanocobalamin (vitamin B-12) 1,000 mcg PO DAILY PRN energy 07/13/20 07/16/23 Unknown 1,000 mcg capsule valacyclovir 1 gram tablet 2,000 mg (2 x 1 gram) PO BID PRN 10/24/22 07/16/23 Unknown when lesions appear #16 tabs metformin 500 mg tablet,extended 500 mg PO BID #180 tabs 06/03/23 07/16/23 Unknown release 24 hr atorvastatin 20 mg tablet 20 mg PO QPM 07/10/23 07/16/23 Unknown enalapril maleate 10 mg tablet 10 mg PO QPM 07/10/23 07/16/23 Unknown levothyroxine 50 mcg tablet 50 mcg PO QPM 07/10/23 07/16/23 Unknown Past Medical History Medical History Acid reflux disease Coronary artery calcification PCP monitoring, Stress echo 2020 unremarkable History of vertigo Mal de dbarquement syndrome (MdDS) Hx of gastroesophageal reflux (GERD) Hyperlipidemia Hypertension Hypothyroidism Lumbar spinal stenosis Lump in neck US neck 05/14/23 (for evaluation of the lump): No fluid collections. No pathologically enlarged lymph nodes. Submandibular lymph nodes measure up to 4 mm in short axis with normal central fatty abhishek. The imaged submandibular glands appear normal. Metabolic syndrome Obesity Osteoarthritis of right knee Prediabetes Pulmonary nodule, left Under surveillance/stable per patient Exercise / Class Metabolic Activity II 4-5 Yardwork/Stairs/Walk up hill (one FS: no CP, no SOB) Past Family History Family History Mother Osteoporosis Uterine cancer Heart disease Coronary heart disease Atrial fibrillation Grandfather (Maternal) Stroke Father , age 55 Myocardial infarction Grandmother Breast cancer Denies family history of Ovarian cancer Prostate cancer Lung cancer Colorectal cancer Past Surgical History Surgical History H/O bilateral oophorectomy History of knee surgery Right History of open reduction and internal fixation (ORIF) procedure Left ankle (hardware removed) Hx of colonoscopy Hx of oral surgery 04/2023, dental implant placed Hx of tonsillectomy S/P hardware removal Left ankle Past Anesthesia History No Hx of Anesthesia Complications and No Family Hx of Anesthesia Complications History of PONV No Hx of PONV and Hx of Motion Sickness Social History Smoking Status: Former smoker tobacco type: cigarettes Do You Dip or Chew Tobacco: No Smoking End Date: Quit 1988 Hx Alcohol Use: Yes Alcohol type: wine alcohol intake frequency: holidays/special occasions only Hx Substance Use: No substance use type: does not use Review of Systems Patient denies chest pain, shortness of breath, dyspnea on exertion, fever, chills, cough, wheezing, palpitations. Physical Exam Vital Signs BP 156/82 P 63 TEMP 98.3 SP02 96%RA RESP 16 Physical Full cervical extension range of motion. Full TMJ range of motion. TMD > 3.5 finger breaths Mallampati Score 4 (small oral opening) Dentition: intact, right upper side implant Lungs: clear throughout to auscultation Cardiac: regular rate and rhythm, no murmurs noted Spine: normal Carotid arteries: negative bruit Extremities: non-pitting LE edema Lab Results Anesthesia Preop Results Results Anesthesia Widget: WBC 6.37 K/ul (4.8-10.8) 07/14/23 Hgb 12.9 g/dl (12.0-16.0) 07/14/23 Hct 38.3 % (37.0-47.0) 07/14/23 Plt 264 K/uL (130-400) 07/14/23 Na 137 mmol/L (136-145) 07/14/23 K 4.0 mmol/L (3.5-5.1) 07/14/23 Cl 102 mmol/L (98-107) 07/14/23 CO2 24 mmol/L (21-32) 07/14/23 BUN 21 mg/dl (6-23) 07/14/23 Creat 0.75 mg/dl (0.6-1.2) 07/14/23 Glucose Level 98 mg/dl (70-99(Fasting)) 07/14/23 PT 10.8 Seconds (9.0-12.0) 07/14/23 PTT 27 Seconds (21-31) 07/14/23 INR 1.0 (0.9-1.1) 07/14/23 HA1c 5.7 % (4.5-5.6) H 07/14/23 Blood Type B Positive 07/14/23 Antibody Screen NEGATIVE 07/14/23 Testing Electrocardiogram Date: 07/14/23 SB at 59bpm. TWA, consider inferior ischemia. Scanned in ECG done 05/23/2020 notes similar inferior TWA. Stress echo was one 06/08/2020- unremarkable findings* Chest X-Ray Date: 07/14/23 Findings: + NAD Stress Test Date: 06/08/20 Negative exercise stress echo/ECG for ischemia at 127% MPHR. Rest echo with EF 65%. Mild LAD. Grade I DD. Mild LAD. No significant valvular disease. 7 METS. Other Testing Head/neck Ultrasound Date: 05/14/23 FINDINGS: No fluid collections. No pathologically enlarged lymph nodes. Submandibular lymph nodes measure up to 4 mm in short axis with normal central fatty abhishek. The imaged submandibular glands appear normal. IMPRESSION: Normal-appearing lymph nodes.
--- NOTE | 2023-08-08 07:57 | History & Physical Report ---
Date of Service August 08, 2023 Assessment & Plan (1) Osteoarthritis of right knee: 72-year-old female with advanced right knee DJD. History of knee arthroscopy in the past. She would like to have her knee fixed. Mammogram taken the operative right total knee replacement. The risks Mente this procedure planed the patient clued but not limited to DVT PE infection neurological and vascular bleeding palm pain limb range of motion sepsis excetra. Patient understands and desires to proceed. Informed consent was obtained. He does have a history of knee arthroscopy in the past. We will use DVT prophylaxis including thigh-high teds, SCDs, aspirin twice a day. She is planned to be discharged to home using [facility] home health program. Her sister is going to come and help her during the postoperative period History of Present Illness Chief Complaint: . Persistent right knee pain and discomfort Primary Care Provider: Roselyn Peterson DO . Patient is a 72-year-old female who presents for definitive treatment of her right knee. She got a long history of knee problems had a right knee scope done by myself just about 6 years ago. She did pretty well for a while. He developed progressive a anterior medial knee pain discomfort that started become more disabling. She does a lot of traveling and having difficulties walking. She limps more as the day goes on. Her knee gets stiff when she sits down for a while. To get her knee definitively fixed. Allergies Allergy/AdvReac Type Severity Reaction Status Date / Time No Known Drug Allergies Allergy Verified 07/16/23 10:49 Seasonal AdvReac Unknown Uncoded 07/16/23 10:49 Home Medications Medication Instructions Recorded Confirmed Type acetaminophen 650 mg 650 mg PO Q6H PRN Pain 08/07/18 07/16/23 History tablet,extended release vtxtnam-epnsfnxzl-mqol 333 mg-133 1 tab PO DAILY 08/07/18 07/16/23 History mg-5 mg tablet coenzyme Q10 100 mg capsule 100 mg PO DAILY 08/07/18 07/16/23 History multivitamin with minerals-folic 200 mcg PO DAILY 08/07/18 07/16/23 History acid 200 mcg chewable tablet (Adult Multivitamin Gummies) cholecalciferol (vitamin D3) 25 50 mcg (2 x 25 mcg (1,000 unit)) 08/05/19 07/16/23 Rx mcg (1,000 unit) capsule PO DAILY #30 caps cyanocobalamin (vitamin B-12) 1,000 mcg PO DAILY PRN energy 07/13/20 07/16/23 History 1,000 mcg capsule valacyclovir 1 gram tablet 2,000 mg (2 x 1 gram) PO BID PRN 10/24/22 07/16/23 Rx when lesions appear #16 tabs metformin 500 mg tablet,extended 500 mg PO BID #180 tabs 06/03/23 07/16/23 Rx release 24 hr atorvastatin 20 mg tablet 20 mg PO QPM 07/10/23 07/16/23 History enalapril maleate 10 mg tablet 10 mg PO QPM 07/10/23 07/16/23 History levothyroxine 50 mcg tablet 50 mcg PO QPM 07/10/23 07/16/23 History Wheeled Walker #1 ea 08/05/23 Rx Past Med/Surg History Problem List Encounter for pre-operative examination Medical History Osteoarthritis of right knee History of vertigo Mal de dbarquement syndrome (MdDS) Metabolic syndrome Acid reflux disease Obesity Coronary artery calcification PCP monitoring, Stress echo 2020 unremarkable Pulmonary nodule, left Under surveillance/stable per patient Lumbar spinal stenosis Prediabetes Hypothyroidism Hyperlipidemia Hypertension Hx of gastroesophageal reflux (GERD) Lump in neck US neck 05/14/23 (for evaluation of the lump): No fluid collections. No pathologically enlarged lymph nodes. Submandibular lymph nodes measure up to 4 mm in short axis with normal central fatty abhishek. The imaged submandibular glands appear normal. Surgical History Hx of oral surgery 04/2023, dental implant placed S/P hardware removal Left ankle History of open reduction and internal fixation (ORIF) procedure Left ankle (hardware removed) Hx of colonoscopy Hx of tonsillectomy History of knee surgery Right H/O bilateral oophorectomy Family History Mother Osteoporosis Uterine cancer Heart disease Coronary heart disease Atrial fibrillation Grandfather (Maternal) Stroke Father , age 55 Myocardial infarction Grandmother Breast cancer Denies family history of Ovarian cancer Prostate cancer Lung cancer Colorectal cancer Social History Smoking Status: Former smoker Tobacco Type: Cigarettes Age Started Using Tobacco: 23; Age Quit Using Tobacco: 40; packs per day: 0.25; Second Hand Exposure: No; Do You Dip or Chew Tobacco: No; Hx Alcohol Use: Yes Alcohol type: wine Alcohol Intake Frequency: 2-3 x/Week Hx Substance Use: No Preferred Language: Trinidadian Communication Ability: Effective Visual Impairment: Diminished Hearing Ability: Normal Engineering Leader Required: No Beliefs That Will Affect Care: None marital status: Single Current Living Situation: Family 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 Physical Exam . Physical examination is a pleasant middle-aged female. Looking pretty good health. Examination the right knee reveals a slight varus alignment to her knee. She is tender with medial joint line. Small knee effusion. Range of motion 0-1 25. There is no instability. No pain with hip motion. Constitutional WD/WN, vitals as above Respiratory normal respiratory effort, lungs clear to auscultation Cardiovascular RRR, no murmur, no edema Gastrointestinal (Abdomen) normal bowel sounds, soft, nontender, no hepatosplenomegaly Results & Data Results & Data Laboratory Results . Diagnostic Findings . X-rays of the right knee reviewed. Shows advanced right knee medial compartment DJD. She has complete loss of medial joint space. This has progressed over the past several years. Discussed some osteophytes laterally. PG Care Time/CCT Total # of Minutes Spent Total Time Spent with Patient: Total time spent is greater than 50% in coordination of care (as documented) at patient's floor/unit and/or counseling patient: Coding Level of Care Code None Diagnoses Osteoarthritis of right knee M17.11
[~2023-08-19 08:21] MED LIST changes: -ACET-1693 PO; -ASPI-461 PO; -ATOR-22 PO; +BUPIVACAINE 0.5 % 5 MG/1 ML PF 10ML VIAL ONE; -CALC500T64; -COEN1CAP17 PO; -ENAL10TA88 PO; +EPINEPHrine INJ 1 MG/ML AMP ONE; -KETO10TA PO; -LEVO50TA PO; -MELA1TAB3 PO; -MULT-1027 PO; -OXYC-57 PO; +ROPIVACAINE 0.5% 5 MG/ML 30 ML VIAL ONE
--- NOTE | 2023-08-19 08:39 | History & Physical Bridge Note ---
Date of Service August 19, 2023 History & Physical Bridge Note I have examined the patient, reviewed the History & Physical and in the interval since the performance of the History & Physical I have noted the following changes of clinical significance: no changes noted
[2023-08-19] MEDS: FAMOTIDINE 20 MG TAB PO SCH (08:43)
[2023-08-19] MEDS: METOCLOPRAMIDE HCL 10 MG TABLET PO SCH (08:43)
[2023-08-19] MEDS: dexAMETHasone**PF** 10 MG/ML VIAL IV SCH (08:43)
[2023-08-19] MEDS: ACETAMINOPHEN 500 MG TAB PO SCH ×2 (08:44→14:45)
[2023-08-19] MEDS: LR 60ML/HR IV SCH (08:44)
[2023-08-19] MEDS: CeleBREX 200 MG CAP PO SCH (08:45)
[2023-08-19] MEDS: LR 500ML BOLUS, THEN 15ML/HR IV SCH (08:46)
[2023-08-19] MEDS ORDERED: ePHEDrine sulfate 50 MG/ML AMP IV PRN (08:52)
[2023-08-19] MEDS ORDERED: ATROPINE SULFATE 0.1 MG/ML 10ML SYR IV PRN (08:52)
[2023-08-19] MEDS ORDERED: fentaNYL citrate PF 100 MCG/2 ML VIAL ONE (09:29)
[2023-08-19] MEDS ORDERED: PROPOFOL IV EMULSION 10 MG/ML 20 ML VIAL IV ONE (09:29)
[2023-08-19] MEDS ORDERED: MIDAZOLAM HCL 1 MG/ML 2ML VIAL ONE (09:29)
[2023-08-19] MEDS: ceFAZolin 2000MG 2,000 MG/15 ML SYR IV SCH ×2 (09:30→16:58)
[2023-08-19] MEDS: ROPIV 0.5% 246mg, Ketorolac 30mg, EPINEPHrine 0.5mg in NSS INFIL SCH (09:55)
[2023-08-19] MEDS: ORTHO JOINT ANESTHETIC ONE (09:55)
[2023-08-19] MEDS: TRANEXAMIC ACID 1,000 MG **IV Intra-op IV SCH (10:05)
--- NOTE | 2023-08-19 10:50 | Operative Report ---
PG Post Operative Report Pre & Post Diagnosis Operation Date: 08/19/23 10:30 Pre-Op Diagnosis: Right Knee Degenerative Joint Disease Post-Op Diagnosis: Right Knee Degenerative Joint Disease I identified the patient and participated in the time-out.: Yes Procedure Operation Date: 08/19/23 10:30 Right cemented total knee arthroplasty Surgeon Franklin Vicente MD [employer] Tonny Hebert PA-C Estimated Blood Loss 50 Findings Consistent with Post-Op Diagnosis Operative findings revealed advanced right knee DJD. She had extensive grade 4 changes the medial compartment as well as the patellofemoral compartment. Moder ate-sized joint effusion. Specimens Right knee sent for pathology. Anesthesia Type Spinal MAC Complications none Disposition Accompanied Patient To Recovery: No Indications Patient is a 72-year-old female is had a long history of right knee pain discomfort described to gotten worse over time. She had a right knee arthroscopy of about 7 years ago which provide some temporary relief. Over the past several years she developed increased pain discomfort and progressive arthritic changes. She failed conservative measures. She elected proceed with total knee arthroplasty. Description of Procedure Operative implants consist of: 1 Biomet Vanguard size 65 right posterior stabilized femoral component. 2. Biomet size 67 tibial tray. 3. 10 mm posterior stabilized polyethylene insert. 4. 31 x 8 all poly patella. The patient was taken to the op room, identified, placed on the operating table in the supine position. All contact areas were appropriately padded. IV antibiotics tried by anesthesia team. A spinal anesthetic and adductor canal block had been applied in the holding area. A Naqvi catheter was placed in sterile fashion. A right thigh tourniquet was then placed in the right lower extremities then prepped and draped in usual sterile fashion. The right leg was elevated exsanguinated with use of an Esmarch and the tourniquet was placed at 300 mmHg. An anterior approach to the right knee was then performed to longitudinal incision centered over the patella. Sharp dissection was carried through subcutaneous tissue down the extensor mechanism. Medial parapatellar arthrotomy incision was made. Some subperiosteal dissection was carried out medially. The fat pad was dissected from Neath patella tendon. Lateral patellofemoral ligament was released. Patella subluxated laterally and the knee was flexed. The osteophytes taken off distal femur. The ACL and PCL were then released from distal femur the tibia subluxated anteriorly. The external treatment LYMErix then placed on the interface of the tibia and adjusted 14 mm medially. Proximal tibial cut was made remove about 2 to 3 mm of bone from the medial side. The tibia sized to a size 67. Attention drawn the femur. The distal femur examined the sharp drill. Intramedullary canal was suction. A right 5 degree valgus cutting guide was placed. The distal femoral cutting block was pinned in place. Distal femoral cut was made take an additional 3 mm of bone off distal femur. The femur was then sized to a size 65. The AP cutting block was pinned parallel to the epicondylar axis which was 3 degrees of external rotation. The anterior cut, anterior chamfer, posterior cut, posterior chamfer cuts were made. The box cutting guide was placed in the just slight lateral and the box cut was made. The knee was flexed. The remnants of the medial and lateral menisci were excised. The osteophyte taken off the posterior aspect the femur. A trial femoral component was placed. The tibial tray was pinned Alba external rotation and the drill and stem punch were used to create defect in proximal tibia for the tibial tray. The knee was then trialed and the 10 mm insert fit most appropriately. Attention drawn the patella. The patella was cleaned resolved soft tissue. Patella thickness measured about 17 mm in thickness was cut down to 12. It was sized to a size 31 patella. The locals were drilled for 31 patella. The lateral osteophyte was removed. Patella button was placed. Knee was taken through range of motion patella tracked nicely with no thumbs test. Attention drawn to placing the permanent components. All trial components were removed. Bone plug was placed in the distal femur limit blood loss. A double batch Palacos G cement was mixed. A Biomet Vanguard size 65 right posterior Byce femoral component, size 67 tibial tray, a 10 mm post stabilized polyethylene insert, and a 31 x 8 all poly patella then cemented in place. The knee was brought out into full extension till cement hardened. Final cement check was then performed. The pericapsular tissues were injected with total of 100 cc of Ortho mix. Patient did receive 1 g tranexamic acid. The tourniquet was then let down for final tourniquet time of 46 minutes. Hemostasis assured use electrocautery. Extensor Metros then closed with combination 1 PDS suture #1 Vicryl suture in a [id number] fashion. Extensor Meclomen checked found to be intact in the subcutaneous tissues then closed with 2 Dexon suture in buried interrupted fashion skin was closed skin giovani. Leg was then cleaned and dried and sterile dressed with Xeroform, 4 fours, sterile cast padding, Tyrone bandage were applied. Patient then transferred to the recovery room in stable condition. Patient tolerated the procedure well and there were no complications. Tonny Hebert, my physician prosthetic assistant, was present for the entire procedure. His assistance was essential and required for appropriate patient positioning, prepping and draping, surgical exposure, performing the technical details of the operation, placement the implants, closure of the wound, and placement of the sterile bandage. I attest to the content of the Intraoperative Record and any orders documented therein. Any exceptions are noted below.
--- NOTE | 2023-08-19 12:07 | Anesthesiology Progress Note ---
Date of Service August 19, 2023 Anesthesia Post Procedure Vital Signs Vital Signs: Temp Pulse Pulse Resp BP BP Pulse Ox 08/19/23 11:50 75 13 136/62 96 08/19/23 11:40 73 14 132/54 L 96 08/19/23 11:30 36.3 C L 73 14 128/57 L 97 08/19/23 11:20 73 14 128/62 98 08/19/23 11:10 75 13 120/57 L 98 08/19/23 11:00 74 20 104/59 L 100 08/19/23 10:51 36.5 C 76 16 101/49 L 99 08/19/23 08:38 36.5 C 69 20 172/71 H 94 O2 Del Method O2 Flow Rate 08/19/23 11:50 Room Air 08/19/23 11:40 Room Air 08/19/23 11:30 Room Air 08/19/23 11:20 Room Air 08/19/23 11:10 Room Air 08/19/23 11:00 Oxymask 3 08/19/23 10:51 Oxymask 3 08/19/23 08:38 Room Air Transfer of Care Handoff Completed per policy Notes Mental Status: alert / awake / arousable Patient Amnestic to Procedure: Yes Nausea / Vomiting: adequately controlled Pain: adequately controlled Airway Patency, RR, SpO2: stable & adequate BP & HR: stable & adequate Hydration State: stable & adequate Neuraxial Anesthesia: was administered and sensory block is resolving Anesthetic Complications: no major complications apparent
[2023-08-19] MEDS ORDERED: NALOXONE HCL 0.4 MG/1 ML VIAL/CARP IV PRN (12:41)
[2023-08-19] MEDS ORDERED: bisacodyL 10 MG SUPP PR PRN (12:41)
[2023-08-19] MEDS ORDERED: ONDANSETRON INJ 2 MG/ML 2 ML VIAL IV PRN (12:41)
[2023-08-19] MEDS ORDERED: METOCLOPRAMIDE HCL INJ 5 MG/ML 2 ML VIAL IV PRN (12:41)
[2023-08-19] MEDS ORDERED: HYDROmorphone INJ 0.5 MG/0.5 ML SYR IV PRN (12:41)
[2023-08-19] MEDS ORDERED: oxyCODONE HCL IR 5 MG TAB (IMMEDIATE RELEASE) PO PRN (12:41)
[2023-08-19] MEDS ORDERED: ALUMINUM/MAGNESIUM SUSP 30 ML UDC PO PRN (12:41)
[2023-08-19] MEDS ORDERED: MAGNESIUM HYDROXIDE SUSP 30 ML UDC PO PRN (12:41)
--- NOTE | 2023-08-19 12:54 | XRay Report ---
RIGHT KNEE 2 VIEWS History: Right total knee arthroplasty. Degenerative arthritis. Postop. FINDINGS: The patient is status post a right total knee arthroplasty. The hardware is intact. No frac ture or dislocation. Skin giovani are in place. IMPRESSION: Right total knee arthroplasty. No evidence for hardware complication. ACT 112: Negative or not required by law. Electronically signed by: Ravinder Dewey M.D. 08/19/2023 12:52 PM
[2023-08-19] MEDS ORDERED: CYANOCOBALAMIN (B-12) 500 MCG TABLET PO PRN (12:55)
[2023-08-19] MEDS: SODIUM CHLORIDE 0.9% 1,000 ML IV SCH (13:14)
[2023-08-19] MEDS: KETOROLAC TROMETHAMINE 15 MG/ML VIAL IV SCH (13:14)
[2023-08-19] MEDS: ASCORBIC ACID 500 MG TAB PO SCH (16:57)
[2023-08-19] MEDS: TRANEXAMIC ACID / 0.7% NACL 1,000 MG/100 ML BAG IV SCH (16:58)
[2023-08-19] MEDS: ASPIRIN 81 MG ECTAB PO SCH (20:01)
[2023-08-19] MEDS: ATORVASTATIN 20 MG TAB PO SCH (20:02)
[2023-08-19] MEDS: DOCUSATE SODIUM 100 MG CAP PO SCH (20:02)
[2023-08-19] MEDS: SENNA 8.6 MG TAB PO SCH ×2 (20:03→20:04)
[2023-08-19] MEDS: ENALAPRIL MALEATE 10 MG TAB PO SCH (20:03)
[2023-08-20] MEDS: LEVOTHYROXINE SODIUM 50 MCG TABLET PO SCH (06:42)
--- NOTE | 2023-08-20 07:13 | Orthopedic Progress Note ---
Date of Service August 20, 2023 Assessment & Plan (1) Status post right knee replacement: Plan: 72-year-old female postop day 1 from a right knee replacement doing pretty well. Pains controlled. She is neurologically intact. Plan: 1. DVT prophylaxis including thigh-high teds, SCDs, aspirin twice a day. 2. PT/OT. Weight-bear as tolerated. Right total knee protocol. 3. Pain control doing okay with current pain regimen. 4. Diabetes management. She is on insulin scot sliding scale coverage. 5. Disposition plan to discharge to home with some home health. Her sisters, come and stay with her and assist in her care as well. Admission and Anticipated Discharge Date Admission Date: August 19, 2023 Subjective 72-year-old female postop day 1 from a right knee replacement. She is doing pretty well. Did not sleep well last night. Pains controlled. No chest pain or shortness of breath. Not feeling dizzy or lightheaded. Looking forward to going home today. Physical Exam Physical Exam: Physical exam shows a pleasant middle-age female. She is sitting up in her bedside chair looks comfortable. Examination of the right leg reveals dressing clean dry and intact. She can dorsiflex and plantarflex her foot appropriately. She can do a good straight leg raise. Respiratory: normal respiratory effort, lungs clear to auscultation Cardiovascular: RRR, no murmur, no edema Gastrointestinal (Abdomen): normal bowel sounds, soft, nontender, no hepatosplenomegaly Results & Data Vital Signs (Past 12 Hours) Vital Signs Temp Pulse Resp BP Pulse Ox O2 Del Method 08/20/23 04:50 36.7 C 63 16 134/71 96 Room Air 08/20/23 00:34 36.7 C 64 16 129/73 96 Room Air 08/19/23 19:34 36.8 C 85 15 143/76 H 95 Room Air Laboratory Results Lab results are pending.
[2023-08-20 07:34] LABS: BUN Creatinine Ratio 19.2 (10-20); Calcium 8.5 mg/dl (8.6-10.3); Creatinine Clr Calc Pharmacy 80.7 ml/min; Est GFR (African American) 95.4 ml/min; Est GFR (Non-African American) 82.3 ml/min; Potassium 3.7 mmol/L (3.5-5.1)
[2023-08-20 07:39] LABS: Hematocrit (blood only) 29.6 % (37.0-47.0); Hemoglobin 9.9 g/dl (12.0-16.0); Mean Corpuscular Hemoglobin 30.1 pg (25.0-34.0); Mean Corpuscular Hgb Conc 33.4 g/dL (32.0-36.0); Mean Platelet Volume 11.8 fL (9.4-12.4); Platelet Count 205 K/uL (130-400); RDW Standard Deviation 43.1 fL (36.4-46.3); Red Blood Count 3.29 M/uL (4.20-5.40); White Blood Count 9.87 K/ul (4.8-10.8)
[2023-08-20] MEDS: CHOLECALCIFEROL 25 MCG (1000 UNITS) TAB PO SCH (07:57)
[2023-08-20] MEDS: dexAMETHasone 10 MG in SYRINGE 0 ML IV SCH (08:01)
[2023-08-20] MEDS: CEROVITE ADV FORMULA TAB PO SCH (08:02)
[2023-08-20] MEDS: MULTIVITAMIN TAB PO SCH (08:02)
[2023-08-20] MEDS ORDERED: NON-FORMULARY MEDICATION (Coenzyme Q10 100 mg capsule) PO SCH (09:00)
--- NOTE | 2023-08-25 08:37 | Discharge Summary ---
Date of Service August 25, 2023 Discharge Data Procedures Performed Operation Date: 08/19/23 10:30 Actual Procedures p Right Total Knee Arthroplasty(Right) - Franklin Vicente MD Hospital Course (1) Status post right knee replacement: This is a 72 year old patient admitted on 08/19/23 and underwent total knee arthroplasty. She tolerated the procedure well and there were no complications. Transferred to the PACU post op and later to the orthopedic floor for further care. She was given ancef for antibiotic prophylaxis. She was also given SUSHIL stockings, SCDs, and aspirin for DVT prophylaxis. Hemoglobin, hematocrit, and vital signs were monitored during her hospital stay and remained stable. Did not require any blood transfusions. There were no complications during her hospital stay. By post op day #1 the patient was tolerating a diabetic diet, pain was reasonably controlled with oral pain medicine, and she was participating in physical therapy. On post op day #1 the patient was discharged home and set up with home health care. She was given printed discharge instructions including prescriptions for extra strength tylenol, aspirin, cefadroxil, ketorolac, zofran, oxycodone, and senokot. Continue physical therapy, weight bearing as tolerated. Continue SUSHIL stockings. Follow up approximately 2 weeks post op or sooner if there are problems or concerns. Coding Level of Care Code None Diagnoses Status post right knee replacement Z96.651
== END 2023-08-20 10:59 | disposition home health service (06) ==
LOC: ASU 08:21 → 3E 08:21